=== PATIENT | female | born 1990 | race Two or more races ===

== ENCOUNTER 2022-01-27 19:55 | Emergency (ER) | payer OTHER ==
[~2022-01-27] VITALS: Ht 170.2 cm; Wt 136.5 kg
[2022-01-27] MEDS ORDERED: PRENA1 CHEW TA1.4 MG (20:12)
[2022-01-28] MEDS ORDERED: PEPCID AC20 MG PO (01:04)
[2022-01-28] MEDS ORDERED: LEVSIN0.125 MG PO (01:04)
[2022-01-28] MEDS ORDERED: INTESTINEX680 M1 PO (01:04)
== END 2022-01-28 01:30 | disposition home or self-care (01) ==
LOC: ER 19:55
DX: O26.892 Other specified pregnancy related conditions, second trimester (principal); Z3A.21 21 weeks gestation of pregnancy; K52.9 Noninfective gastroenteritis and colitis, unspecified; E86.0 Dehydration

== ENCOUNTER 2022-03-23 14:12 | Outpatient (CLI) | payer OTHER ==
[~2022-03-23] VITALS: Ht 172.7 cm; Wt 145.6 kg
[~2022-03-23 14:12] MED LIST: INTESTINEX680 M1 PO; LEVSIN0.125 MG PO; PEPCID AC20 MG PO; PRENA1 CHEW TA1.4 MG
== END 2022-03-25 12:57 | disposition home or self-care (01) ==
LOC: OBS/DEL 14:12
PROVIDERS: ATTEND Specialist
DX: O47.03 False labor before 37 completed weeks of gestation, third trimester (principal); Z3A.37 37 weeks gestation of pregnancy

== ENCOUNTER 2022-04-02 15:15 | Inpatient (IN) | payer OTHER ==
[~2022-04-02] VITALS: Ht 170.2 cm; Wt 145.6 kg
== END 2022-04-07 13:43 | disposition home or self-care (01) | DRG 798 ==
LOC: LDR 04-05 06:19 → OB/GYN 04-05 06:19 → LDR 04-05 15:15 → OB/GYN 04-07 13:43
PROVIDERS: ADMIT Specialist; ATTEND Specialist
PROC: 10E0XZZ Delivery of Products of Conception, External Approach (ICD-10-PCS; principal; 2022-04-05)
PROC: 0UQMXZZ Repair Vulva, External Approach (ICD-10-PCS; 2022-04-05)
PROC: 4A1HXCZ Monitoring of Products of Conception, Cardiac Rate, External Approach (ICD-10-PCS; 2022-04-05)
PROC: 0UB70ZZ Excision of Bilateral Fallopian Tubes, Open Approach (ICD-10-PCS; 2022-04-06)
DX: O71.82 Other specified trauma to perineum and vulva (principal); O99.820 Streptococcus B carrier state complicating pregnancy; Z3A.39 39 weeks gestation of pregnancy; Z20.822 Contact with and (suspected) exposure to COVID-19; Z37.0 Single live birth; Z30.2 Encounter for sterilization